=== PATIENT | female | born 1970 | race Caucasian/White ===

== ENCOUNTER → 2020-05-28 | Outpatient (CLI) | payer OTHER ==
--- NOTE | 2020-05-28 09:40 | Diagnostic Imaging Report ---
EXAMINATION: Left knee at 9:19 AM INDICATION: Knee pain Four views were obtained. There are no prior studies available for comparison. There is no fracture, dislocation or acute bony abnormality evident. There is mild narrowing of the medial compartment of the knee joint and the patellofemoral space. The lateral compartment is fairly well-maintained. There may be faint chondrocalcinosis of both menisci. The soft tissues are otherwise unremarkable. IMPRESSION: 1. There is no evidence for an acute bony abnormality. 2. There is only mild degenerative disease of the knee joint. Dictated by: Dictated on workstation # [id number]
== END ==
LOC: RAD 09:05
PROVIDERS: ATTEND Anesthesiology Pain Medicine
DX: Z02.71 Encounter for disability determination (principal); M17.12 Unilateral primary osteoarthritis, left knee

== ENCOUNTER → 2020-09-03 | Outpatient (CLI) | payer OTHER ==
--- NOTE | 2020-09-03 16:26 | Diagnostic Imaging Report ---
PROCEDURE: MRI lumbar spine. TECHNIQUE: Multiplanar, multisequence MRI of the lumbar spine was performed without contrast. INDICATION: Low back pain, chronic. Old injury years ago. COMPARISON: None FINDINGS: The last well-formed disc space will labeled L5-S1 for the purposes of this examination. There is mild disc height loss at L3-4. The vertebral body heights are preserved. No acute fracture is seen. The conus terminates in appropriate position. Soft tissues about the lumbar spine demonstrate no acute abnormality. T12-L1: No disc bulge. No spinal canal or foraminal stenosis. L1-2: No significant disc bulge. No spinal canal or foraminal stenosis. L2-3: Mild disc bulge with facet arthropathy. Mild spinal canal narrowing. No foraminal stenosis. L3-4: Diffuse disc bulge and facet arthropathy. Mild spinal canal narrowing and mild narrowing of the lateral recesses. Mild left foraminal narrowing. No right foraminal stenosis. L4-5: Mild disc bulge causing mild spinal canal narrowing. There is mild narrowing of the lateral recesses. No foraminal stenosis. L5-S1: No significant disc bulge. Right lateral osteophytes causing moderate right foraminal stenosis. No spinal canal stenosis. IMPRESSION: 1. Mild degenerative changes in the lumbar spine causing mild multilevel spinal canal narrowing as described above. 2. Moderate right foraminal stenosis at L5-S1. Dictated by: Dictated on workstation # [id number]
== END ==
LOC: RAD 14:45
PROVIDERS: ATTEND Nurse Practitioner Family
DX: M47.816 Spondylosis without myelopathy or radiculopathy, lumbar region (principal); M47.818 Spondylosis without myelopathy or radiculopathy, sacral and sacrococcygeal region; M51.16 Intervertebral disc disorders with radiculopathy, lumbar region; M48.061 Spinal stenosis, lumbar region without neurogenic claudication; M48.07 Spinal stenosis, lumbosacral region; M25.78 Osteophyte, vertebrae
CPT/HCPCS: 72148